=== PATIENT | female | born 1945 | race Caucasian/White ===

== ENCOUNTER 2021-08-19 10:11 | Emergency (ER) | payer OTHER ==
[~2021-08-19] VITALS: Ht 154.9 cm; Wt 63.5 kg
[2021-08-19 10:34] VITALS: BP_SYST 188
--- NOTE | 2021-08-19 10:34 | NUR ---
Patient to ER bed 4 to gown for evaluation. Side rails up. Report given to Corrina KELLER.
--- NOTE | 2021-08-19 11:00 | NUR ---
Pt presents to the [place]. Pt CC LRQ pain radiates to back and right upper thigh. AAOx4 Pain scale 10/10. PMHx Tremors consulting with Neurologist Knee replacement surgery 02/09
[2021-08-19] MEDS ORDERED: KETOROLAC TROMETHAMINE 30 MG VIAL IM ONE (11:30)
[2021-08-19 11:56] LABS: BASOPHILS % (AUTO) 0.8 % (0.0-2.0); EOSINOPHILS # (AUTO) 0.1 K/uL (0.0-0.4); EOSINOPHILS % (AUTO) 1.7 % (0.0-4.0); HEMOGLOBIN 12.2 g/dL (12.0-16.0); LYMPHOCYTES # (AUTO) 1.6 K/uL (1.0-5.5); LYMPHOCYTES % (AUTO) 23.8 % (20.5-51.5); MEAN CORPUSCULAR HEMOGLOBIN 28 pg (27-31); MEAN CORPUSCULAR HGB CONC 34 % (32-36); MEAN CORPUSCULAR VOLUME 83 fL (79.0-98.0); MONOCYTES # (AUTO) 0.6 K/uL (0.0-1.0); MONOCYTES % (AUTO) 9.3 % (1.7-9.3); NEUTROPHILS # (AUTO) 4.2 K/uL (1.8-7.7); NEUTROPHILS % (AUTO) 64.4 % (40.0-70.0); PLATELET COUNT (AUTO) 189 K/uL (130-430); RED BLOOD CELL COUNT(AUTO) 4.32 MIL/uL (4.2-6.2); RED CELL DISTRIBUTION WIDTH 14.8 % (9.0-15.0); WHITE BLOOD COUNT (AUTO) 6.6 K/uL (4.8-10.8)
[2021-08-19 11:57] LABS: ANION GAP 6 (5-15); CALCIUM 8.8 mg/dL (8.4-11.0); CHLORIDE 106 mmol/L (98-107); CREATININE 0.84 mg/dL (0.55-1.30); GLUCOSE 101 mg/dL (70-99); POTASSIUM 3.8 mmol/L (3.5-5.1); SODIUM SERUM 142 mmol/L (136-145); UREA NITROGEN, BLOOD 14 mg/dL (8-21)
[2021-08-19 12:02] LABS: PHOSPHORUS 4.2 mg/dL (2.7-4.5)
--- NOTE | 2021-08-19 12:15 | NUR ---
Md Dos Santos bs with pt for MSE.
--- NOTE | 2021-08-19 13:31 | NUR ---
Urine specimen collected and sent to lab.
[2021-08-19 13:45] LABS: BILIRUBIN,URINE NEGATIVE (NEGATIVE); CLARITY/URINE CLEAR (CLEAR); COLOR,URINE YELLOW (YELLOW); GLUCOSE,URINE NEGATIVE (NEGATIVE); KETONES,URINE NEGATIVE (NEGATIVE); LEUKOCYTE ESTERASE ,URINE TRACE (NEGATIVE); NITRITE, URINE NEGATIVE (NEGATIVE); PH,URINE 6.5 (5.0-8.0); PROTEIN URINE NEGATIVE (NEGATIVE); UROBILINOGEN,URINE 0.2 (0.2-1.0)
[2021-08-19 13:50] LABS: BLOOD, URINE TRACE (NEGATIVE)
[2021-08-19] MEDS ORDERED: MORPHINE 2 MG/ML INJ. SYRINGE IM ONE (14:15)
[2021-08-19 14:41] LABS: BACTERIA,URINE FEW /HPF (None Seen); RBC,URINE 0-3 /HPF (0-3)
[2021-08-19] MEDS ORDERED: IBUP-1969 PO (16:04)
[2021-08-19] MEDS ORDERED: SULF1TAB48 PO (16:04)
--- NOTE | 2021-08-19 16:17 | NUR ---
Patient given written and verbal discharge instructions and verbalizes understanding. ER MD discussed with patient the results and treatment provided. Patient in stable condition. ID arm band removed. IV catheter removed intact and dressing applied, no active bleeding. Rx of Ibuprofen and Bactrim given. Opportunity for questions provided and answered. Medication side effect fact sheet provided.
[2021-08-19 16:19] VITALS: BP_SYST 188
== END 2021-08-19 16:19 | disposition home or self-care (01) ==
LOC: SED 10:11
DX: S86.811A Strain of other muscle(s) and tendon(s) at lower leg level, right leg, initial encounter (principal); S39.011A Strain of muscle, fascia and tendon of abdomen, initial encounter; R10.31 Right lower quadrant pain; I10 Essential (primary) hypertension; X58.XXXA Exposure to other specified factors, initial encounter; Y93.89 Activity, other specified; Y92.89 Other specified places as the place of occurrence of the external cause; Y99.8 Other external cause status
CPT/HCPCS: 36415; 72170; 74176; 76376; 80048; 81000; 83735; 84100; 85025; 87086; 93971; 96372; 99285; J1885; J2270

== ENCOUNTER 2021-10-20 07:55 | Inpatient (IN) | payer OTHER ==
[~2021-10-20] VITALS: Ht 152.4 cm; Wt 67.1 kg
[2021-10-20] VITALS (11 sets, daily range): BP systolic 56–168
[~2021-10-20 07:55] MED LIST: IBUP-1969 PO; SULF1TAB48 PO
--- NOTE | 2021-10-20 08:05 | NUR ---
RECEIVED PT FROM OMAR CARTER. PT HAS C/O RECTAL PAIN AND BLEEDING BRIGHT RED, SINCE LAST NIGHT. PT IS AAOX4. RESP E/U. ON R/A. DENIES N/V/D/C. DISTAL PULSES NORMAL, CAP REFILL < 3 SECS. SKIN WARM, NO EDEMA, INTACT. SIDERAILS UP X2.
--- NOTE | 2021-10-20 08:10 | NUR ---
DR. ADAN AT BEDSIDE TO ASSESS PT. Addendum: 10/20/21 at [email or web address] JUAN AT BEDSIDE.
[2021-10-20] MEDS ORDERED: NACL 0.9% 1,000 ML IV ONE (08:15)
[2021-10-20 08:31] LABS: BASOPHILS % (AUTO) 0.7 % (0.0-2.0); EOSINOPHILS # (AUTO) 0.1 K/uL (0.0-0.4); HEMATOCRIT 32.4 % (36-48); HEMOGLOBIN 11.2 g/dL (12.0-16.0); LYMPHOCYTES # (AUTO) 1.4 K/uL (1.0-5.5); LYMPHOCYTES % (AUTO) 23.3 % (20.5-51.5); MEAN CORPUSCULAR HEMOGLOBIN 29 pg (27-31); MEAN CORPUSCULAR HGB CONC 35 % (32-36); MEAN CORPUSCULAR VOLUME 84 fL (79.0-98.0); MONOCYTES # (AUTO) 0.5 K/uL (0.0-1.0); MONOCYTES % (AUTO) 8.1 % (1.7-9.3); NEUTROPHILS % (AUTO) 65.9 % (40.0-70.0); PLATELET COUNT (AUTO) 190 K/uL (130-430); RED BLOOD CELL COUNT(AUTO) 3.88 MIL/uL (4.2-6.2); RED CELL DISTRIBUTION WIDTH 14.4 % (9.0-15.0); WHITE BLOOD COUNT (AUTO) 6.1 K/uL (4.8-10.8)
--- NOTE | 2021-10-20 08:32 | NUR ---
CT AB COMPLETED, LABS DRAWN.
[2021-10-20 08:41] LABS: ANION GAP 8 (5-15); CALCIUM 8.5 mg/dL (8.4-11.0); CHLORIDE 107 mmol/L (98-107); CREATININE 0.85 mg/dL (0.55-1.30); GLUCOSE 117 mg/dL (70-99); POTASSIUM 3.9 mmol/L (3.5-5.1); SODIUM SERUM 140 mmol/L (136-145); UREA NITROGEN, BLOOD 16 mg/dL (8-21)
[2021-10-20 08:47] LABS: ALANINE AMINOTRANSFERASE 20 U/L (12-78); ASPARTATE AMINOTRANSFERASE 16 U/L (10-37); TOTAL BILIRUBIN 0.4 mg/dL (0.0-1.0)
[2021-10-20 09:26] LABS: BILIRUBIN,URINE NEGATIVE (NEGATIVE); BLOOD, URINE 1+ (NEGATIVE); CLARITY/URINE CLEAR (CLEAR); COLOR,URINE YELLOW (YELLOW); GLUCOSE,URINE NEGATIVE (NEGATIVE); KETONES,URINE NEGATIVE (NEGATIVE); LEUKOCYTE ESTERASE ,URINE TRACE (NEGATIVE); NITRITE, URINE NEGATIVE (NEGATIVE); PROTEIN URINE NEGATIVE (NEGATIVE); UROBILINOGEN,URINE 0.2 (0.2-1.0)
[2021-10-20 09:40] LABS: BACTERIA,URINE FEW /HPF (None Seen); MUCUS,URINE 1+ /LPF (None Seen); RBC,URINE 0-3 /HPF (0-3); WBC,URINE 0-3 /HPF (0-3)
--- NOTE | 2021-10-20 10:20 | NUR ---
DR. ADAN AT BEDSIDE DISCUSSION POC. Addendum: 10/20/21 at [email or web address] JUAN AT BEDSIDE.
--- NOTE | 2021-10-20 10:39 | NUR ---
Admit bed requested Patient will be admitted to care of . Admitted to ICU unit. Diagnosis GI BLEED Inpatient (Yes or No) YES Observation (Yes or No) NO Orientation concerns or request close to nursing station (Yes or No) NO Covid Status PENDING On vent or bipap NO Isolation requirements NO- COVID PENDING Needs a sitter NO From Home (Yes or if No enter name of facility) YES Requires Dialysis (Yes or No) NO Med Rec Completed (Yes of No) YES
[2021-10-20] MEDS ORDERED: D5/0.45 NS 1,000 ML IV ONE (10:45)
--- NOTE | 2021-10-20 10:46 | NUR ---
COVID KRISHAN SWAB LABLED AND SENT TO LAB
[2021-10-20 10:47] LABS: INR 1.1 (0.8-1.2); PROTHROMBIN TIME 11.1 SECS (9.5-12.5)
[2021-10-20] MEDS ORDERED: VITD2000 PO (11:03)
[2021-10-20] MEDS ORDERED: OCUVITE PO (11:03)
[2021-10-20] MEDS ORDERED: LUTE1CAP5 PO (11:03)
[2021-10-20] MEDS ORDERED: ASPI-1077 PO (11:03)
[2021-10-20] MEDS ORDERED: MAGN400T10 PO (11:03)
[2021-10-20] MEDS ORDERED: OMEG10006 PO (11:03)
[2021-10-20] MEDS ORDERED: LOSA100T3 PO (11:03)
--- NOTE | 2021-10-20 11:12 | NUR ---
DR. ORJAS MET WITH AND ASSESSED PT. PT MOST LIKELY WILL NEED COLONOSCOPY, PT WILL BE MONITORED IN ICU AND HE STATED HE WILL ORDER BLOOD TO HELD.
--- NOTE | 2021-10-20 13:36 | NUR ---
Patient will be admitted to care of OMAR Flannery. Admitted to ICU unit. Will go to room 127b. Belongings list completed. Complete and up to date summary report printed. SBAR report to be given at bedside with opportunity for questions.
--- NOTE | 2021-10-20 14:05 | NUR ---
Called Dr. Doty with a consult,spoke with Rosa Elena Garcia international relations teacher today
[2021-10-20] MEDS ORDERED: GOLYTELY / COLYTE SOLUTION 4 LITERS PO ONE (18:00)
[2021-10-20 18:03] LABS: HEMATOCRIT 28.2 % (36-48); HEMOGLOBIN 9.6 g/dL (12.0-16.0)
--- NOTE | 2021-10-20 19:15 | NUR ---
Opening notes: Received bedside report from Prudencio. Patient was sitting up with in the room. Patient has 20 G in right wrist and left AC. Patient has D5NS running at 75 ml/hr. Patient is schedule for a colonoscopy tomorrow morning and is to be NPO after midnight. Patient had no complaint of pain, talking and engaging. Patient has rectal bleeding, incontinent, with no skin issues. Bed is at the lowest level, brakes are locked, oxygen and suction working, 2 side rails up, and call light within reach.
[2021-10-20] MEDS ORDERED: cefTRIAXone 1 GM in D5W 50 ML IV SCH (19:30)
[2021-10-20] MEDS ORDERED: ACETAMINOPHEN 325 MG TABLET PO PRN (19:30)
[2021-10-20] MEDS ORDERED: PANTOPRAZOLE SODIUM 40 MG/VIAL (PROTONIX) IVP ONE (19:45)
--- NOTE | 2021-10-20 19:55 | NUR ---
Patient ran into ICU to come and get the nurses. Upon getting in to patients room patient was convulsing, pale, bradycardia, and hypotensive. Code blue was called and one Epi was pushed, placed on nonrebreather. When Er Dr. Matt came patient was coming too and began to through up all of the Golytley. Right ac [address] Matt placed a femoral central line. Central line is a dialysis line because the wanted a large bore catheter if needed to push large amounts of fluid into patient. Started patient on 2 units of blood at a rapid infusion rate. Norepinephrine was started at a rate of 0.5 mcg/kg/min. Patient was transferred into ICU to bed 5.
[2021-10-20] MEDS ORDERED: NOREPINEPHRINE 4 MG/4 ML VIAL IV ONE (20:20)
[2021-10-20 20:31] LABS: HEMATOCRIT 28.2 % (36-48); HEMOGLOBIN 9.4 g/dL (12.0-16.0)
[2021-10-20] MEDS ORDERED: ONDANSETRON HCL 4 MG/2 ML VIAL IVP ONE (20:37)
[2021-10-20] MEDS ORDERED: ONDANSETRON HCL 4 MG/2 ML VIAL ONE (20:37)
[2021-10-20] MEDS ORDERED: NOREPINEPHRINE BITARTRATE 8 MG in NS 242 ML IV PRN (21:00)
--- NOTE | 2021-10-20 21:16 | NUR ---
DR. RASHMI ALBRECHT MADE AWARE OF PT S/P CODE BLUE AND 2U PRBCS PER ER MD. ORDERS RECEIVED PER CONSULT DR. GERBER, CONTINUE H/H Q6H, STAT ABG. IF HGB <8.0 TRANSFUSE 1 UNIT PRBCS. WILL CARRY OUT ORDERED.
--- NOTE | 2021-10-20 22:25 | NUR ---
Patient is unable to consume Golytely. patient is nauseas and still throwing up. Asked patient if she can try and she refused to drink.
--- NOTE | 2021-10-20 22:45 | NUR ---
Dr Mott called and gave orders for Zofran.
--- NOTE | 2021-10-20 22:55 | NUR ---
Dr Hernandez was called and informed that patient is unable to tolerate the golytely and an NG tube. Orders were given.
[2021-10-20] MEDS ORDERED: ONDANSETRON HCL 4 MG/2 ML VIAL IVP PRN (23:00)
[2021-10-20] MEDS ORDERED: MAGNESIUM CITRATE 300 ML ORAL SOLUTION PO ONE (23:00)
[2021-10-21] VITALS (25 sets, daily range): BP systolic 122–172
[2021-10-21 02:00] LABS: HEMATOCRIT 34.8 % (36-48)
--- NOTE | 2021-10-21 03:22 | NUR ---
Patient is still refusing to drink the Golytley and the magnesium citrate. Patient did drink some water and said she is starting to feel better, no complaints of pain.
--- NOTE | 2021-10-21 04:57 | NUR ---
CONSULTATION PAGED/CALLED Reason for Consultation: CRITICAL CARE Person Who was Notified: JAVON Consulting Physician: DR. GERBER Hiv Counselor Specialty: PULMONOLOGY Ordering Physician: DR. CARABALLO
[2021-10-21 06:38] LABS: BASOPHILS % (AUTO) 0.1 % (0.0-2.0); HEMATOCRIT 33.6 % (36-48); HEMOGLOBIN 11.8 g/dL (12.0-16.0); LYMPHOCYTES # (AUTO) 1.3 K/uL (1.0-5.5); LYMPHOCYTES % (AUTO) 8.8 % (20.5-51.5); MEAN CORPUSCULAR HEMOGLOBIN 30 pg (27-31); MEAN CORPUSCULAR HGB CONC 35 % (32-36); MEAN CORPUSCULAR VOLUME 85 fL (79.0-98.0); MONOCYTES # (AUTO) 0.6 K/uL (0.0-1.0); MONOCYTES % (AUTO) 4.3 % (1.7-9.3); NEUTROPHILS # (AUTO) 12.6 K/uL (1.8-7.7); NEUTROPHILS % (AUTO) 86.8 % (40.0-70.0); PLATELET COUNT (AUTO) 188 K/uL (130-430); RED BLOOD CELL COUNT(AUTO) 3.98 MIL/uL (4.2-6.2); RED CELL DISTRIBUTION WIDTH 14.6 % (9.0-15.0); WHITE BLOOD COUNT (AUTO) 14.5 K/uL (4.8-10.8)
[2021-10-21 07:02] LABS: ALANINE AMINOTRANSFERASE 24 U/L (12-78); ALBUMIN 2.7 g/dL (3.4-4.8); ANION GAP 5 (5-15); ASPARTATE AMINOTRANSFERASE 42 U/L (10-37); CALCIUM 7.8 mg/dL (8.4-11.0); CHLORIDE 106 mmol/L (98-107); CREATININE 0.82 mg/dL (0.55-1.30); GLUCOSE 157 mg/dL (70-99); POTASSIUM 3.8 mmol/L (3.5-5.1); SODIUM SERUM 139 mmol/L (136-145); TOTAL BILIRUBIN 0.3 mg/dL (0.0-1.0); UREA NITROGEN, BLOOD 11 mg/dL (8-21)
--- NOTE | 2021-10-21 08:00 | NUR ---
Received patient alert, awake and oriented with stable vital signs. She denies any pain or discomfort at this time.
--- NOTE | 2021-10-21 08:15 | NUR ---
Dr Garcia at bedside to assess.
[2021-10-21] MEDS: PANTOPRAZOLE SODIUM 40 MG/VIAL (PROTONIX) IVP SCH (08:29)
[2021-10-21] MEDS ORDERED: EPINEPHrine JECT 0.1 MG/ML SYR IVP ONE (12:56)
[2021-10-21] MEDS ORDERED: NS 1000 ML IV.SOLN IV ONE (12:56)
[2021-10-21] MEDS: POLYETHYLENE GLYCOL 3350, 17 GM/ POWD.PACK PO SCH ×2 (16:00→21:00)
--- NOTE | 2021-10-21 17:40 | NUR ---
Logo Admission Assessment - Care Management Last Saved By: Tiffany Dia Last Saved On: 10/21/2021 5:40 PM (PT) Created By: Tiffany Dia Created On: 10/21/2021 5:39 PM (PT) Patient Information Patient Name: TOMMY DRAKE [address] [place] [address] SSN: : 1945 (age 76 years) Work Phone: [phone] Gender: Female Alternative Phone: Marital Status: Race: WHITE- Race 2: Ethnicity: or or [place] Origin Ethnicity 2: Patient's Information Who was Interviewed? Answers: Patient What language does the patient speak? Answers: Other (Indicate language and if Coal Pipeline Operator services were used or not in notes) Notes: armenian Admitting Facility Answers: *[facility] [[id number]] Admitting Diagnosis GI bleed Advanced Care Planning (check all that apply) Answers: Advanced Directives? Notes: yes Additional Patient Notes covid vaccine: x 4 History and Prior Level of Function DME--PRIOR to Admission: Answers: Walker (document patient usage or frequency of use. Exp; uses walker at all times, uses walker when leaving home) Cane Cognitive--PRIOR to Admission: Answers: Alert & Orientated Home Setting--PRIOR to Admission: Answers: Private Home Notes: mobile home 5 steps lives w/ spouse Was patient receiving Home Health Services prior to Admission? Answers: No Potential Barriers to Discharge Anticipated Discharge Disposition Answers: Home Does the patient have any potential barriers to DC? (indicate barrier & plan to address) Answers: NO, anticipate DC to previous living situations, no additional services anticipated Signature Signature: Signature Date Signed: 10/21/2021 5:40 PM (PT) Signed By: Tiffany Dia Position: Inpatient Social Group Worker Pager Number: Allscripts Generated (Scan) Page 1 of Copyright 2021 [employer]. [Production([id number])]
[2021-10-21 18:23] LABS: HEMATOCRIT 33.1 % (36-48); HEMOGLOBIN 11.3 g/dL (12.0-16.0)
--- NOTE | 2021-10-21 19:05 | NUR ---
OPENING NOTES: RECEIVED BEDSIDE REPORT FROM KATHIE. PATIENT IS A&O X4, SITTING UP IN BED WITH AT BEDSIDE, ON A CLEAR LIQUID DIET, AND DRINKING MIRALAX IN GATORADE. PATIENT HAS A FEMORAL CENTRAL CATHETER WITH NS RUNNING AT 75, 20G RIGHT HAND, NPO AFTER MIDNIGHT IN PREPARATION FOR COLONOSCOPY TOMORROW AT 1500. NO COMPLAINTS OF N/V OR PAIN, NO SKIN ISSUES. BED IS AT THE LOWEST LEVEL, CALL LIGHT WITHIN REACH, BRAKES ARE LOCKED, OXYGEN AND SUCTION WORKING.
--- NOTE | 2021-10-21 21:40 | NUR ---
PATIENT REFUSED TO FINISH OR TO CONSUME ANYMORE MIRALAX. PAGED DR ROJAS TO INFORM.
--- NOTE | 2021-10-21 22:10 | NUR ---
DR JOYCE IS VENTILATION MECHANIC FOR DR ROJAS. INFORMED PATIENT IS REFUSING TO TAKE THE REST OF THE MIRALAX. NO NEW ORDERS
[2021-10-22] VITALS (19 sets, daily range): BP systolic 99–150
[2021-10-22 07:20] LABS: BASOPHILS % (AUTO) 0.4 % (0.0-2.0); EOSINOPHILS # (AUTO) 0.1 K/uL (0.0-0.4); EOSINOPHILS % (AUTO) 1.7 % (0.0-4.0); HEMOGLOBIN 10.6 g/dL (12.0-16.0); LYMPHOCYTES # (AUTO) 1.7 K/uL (1.0-5.5); LYMPHOCYTES % (AUTO) 22.6 % (20.5-51.5); MEAN CORPUSCULAR HEMOGLOBIN 30 pg (27-31); MEAN CORPUSCULAR HGB CONC 35 % (32-36); MEAN CORPUSCULAR VOLUME 85 fL (79.0-98.0); MONOCYTES # (AUTO) 0.9 K/uL (0.0-1.0); MONOCYTES % (AUTO) 12.5 % (1.7-9.3); NEUTROPHILS # (AUTO) 4.7 K/uL (1.8-7.7); NEUTROPHILS % (AUTO) 62.8 % (40.0-70.0); PLATELET COUNT (AUTO) 123 K/uL (130-430); RED BLOOD CELL COUNT(AUTO) 3.52 MIL/uL (4.2-6.2); RED CELL DISTRIBUTION WIDTH 14.9 % (9.0-15.0); WHITE BLOOD COUNT (AUTO) 7.5 K/uL (4.8-10.8)
[2021-10-22 08:20] LABS: ALANINE AMINOTRANSFERASE 23 U/L (12-78); ALBUMIN 2.5 g/dL (3.4-4.8); ANION GAP 6 (5-15); CALCIUM 8.1 mg/dL (8.4-11.0); CHLORIDE 107 mmol/L (98-107); CREATININE 0.74 mg/dL (0.55-1.30); GLUCOSE 111 mg/dL (70-99); POTASSIUM 3.8 mmol/L (3.5-5.1); SODIUM SERUM 141 mmol/L (136-145); TOTAL BILIRUBIN 0.3 mg/dL (0.0-1.0); UREA NITROGEN, BLOOD 11 mg/dL (8-21)
[2021-10-22] MEDS: PANTOPRAZOLE SODIUM 40 MG/VIAL (PROTONIX) IVP SCH ×2 (09:00→09:30)
[2021-10-22 09:17] LABS: ASPARTATE AMINOTRANSFERASE 34 U/L (10-37)
[2021-10-22] MEDS ORDERED: SIMETHICONE 40 MG/0.6 ML ML ONE (12:28)
[2021-10-22] MEDS ORDERED: MEPERIDINE 100 MG INJ. 100 MG/ML VIAL ONE (12:28)
[2021-10-22] MEDS ORDERED: MIDAZOLAM HCL 5 MG/5 ML VIAL ONE (12:29)
[2021-10-22 18:24] LABS: HEMATOCRIT 29.7 % (36-48); HEMOGLOBIN 10.2 g/dL (12.0-16.0)
--- NOTE | 2021-10-22 19:55 | NUR ---
PM ASSESSMENT; -Pt arrived from ICU to Room 103-A via bed. Pt is a/ox4, denies any chest pain,pain,sob,or any acute distress. Spouse is at bedside. VS stable 96.8, 20, 78,p5vgt=47% r/a, 120/62. IV sites of rt wrist & RAC patent after flushed w/ NS,no s/s any infiltration noted. Rt femoral site drsg cdi from Central line removed earlier prior transferring to this unit as telemetry. Discussed and educated poc and how to use call light for assistance or if experiencing any chest pain,pain,sob,or any acute distress, pt verbalized understanding and shows good return demonstration. call light w/in reach, side rails x2. Cont to monitor pt. Addendum: 10/22/21 at 2302 by [employer], OMAR NELSON LATE ENTRY-ADDITIONAL NOTES; I called the catheterization laboratory technician from pt's room and confirmed the room number, pt's name, , and D# matched.
[2021-10-22] MEDS: NACL 0.9% 1,000 ML IV SCH (20:45)
--- NOTE | 2021-10-22 22:15 | NUR ---
ROUNDS; -Pt is lying in bed comfortably. No s/s any acute distress noted. IVF infusing well, no s/s any infiltration noted. Bed alarmed, side rails x2, call light w/in reach. cont to monitor pt.
--- NOTE | 2021-10-23 00:30 | NUR ---
ROUNDS; -Pt is asleep. No s/s any acute distress noted. IVF infusing well, no s/s any infiltration noted. Bed alarmed, side rails x2, call light w/in reach. cont to monitor pt.
[2021-10-23 01:04] VITALS: BP_SYST 120
--- NOTE | 2021-10-23 06:26 | NUR ---
CLOSING NOTES; -Pt is resting in bed comfortably. Pt denies any chest pain,sob,pain,or any acute distress. IVF infusing well. Pt's condition stable entire shift. Bed alarmed, call light w/in reach, side rails x2. Will endorse to next nurse to cont care.
[2021-10-23] MEDS: NACL 0.9% 1,000 ML IV SCH (09:25)
[2021-10-23 10:31] LABS: ANION GAP 4 (5-15); CALCIUM 7.9 mg/dL (8.4-11.0); CHLORIDE 105 mmol/L (98-107); CREATININE 0.68 mg/dL (0.55-1.30); GLUCOSE 117 mg/dL (70-99); POTASSIUM 3.1 mmol/L (3.5-5.1); SODIUM SERUM 140 mmol/L (136-145); UREA NITROGEN, BLOOD 10 mg/dL (8-21)
[2021-10-23 11:25] VITALS: BP_SYST 151
[2021-10-23 12:12] LABS: BASOPHILS % (AUTO) 0.5 % (0.0-2.0); EOSINOPHILS # (AUTO) 0.2 K/uL (0.0-0.4); EOSINOPHILS % (AUTO) 2.4 % (0.0-4.0); HEMATOCRIT 29.5 % (36-48); HEMOGLOBIN 10.1 g/dL (12.0-16.0); LYMPHOCYTES # (AUTO) 1.3 K/uL (1.0-5.5); LYMPHOCYTES % (AUTO) 18.7 % (20.5-51.5); MEAN CORPUSCULAR HEMOGLOBIN 29 pg (27-31); MEAN CORPUSCULAR HGB CONC 34 % (32-36); MEAN CORPUSCULAR VOLUME 85 fL (79.0-98.0); MONOCYTES # (AUTO) 0.6 K/uL (0.0-1.0); MONOCYTES % (AUTO) 8.5 % (1.7-9.3); NEUTROPHILS # (AUTO) 5.1 K/uL (1.8-7.7); NEUTROPHILS % (AUTO) 69.9 % (40.0-70.0); PLATELET COUNT (AUTO) 124 K/uL (130-430); RED BLOOD CELL COUNT(AUTO) 3.46 MIL/uL (4.2-6.2); RED CELL DISTRIBUTION WIDTH 14.6 % (9.0-15.0); WHITE BLOOD COUNT (AUTO) 7.2 K/uL (4.8-10.8)
[2021-10-23] MEDS ORDERED: POTASSIUM CHLORIDE 20 MEQ/PKT PACKET PO ONE (14:00)
[2021-10-23 15:30] VITALS: BP_SYST 150
[2021-10-23 19:40] VITALS: BP_SYST 155
--- NOTE | 2021-10-23 19:40 | NUR ---
PM ASSESSMENT; - Pt is a/ox4, denies any chest pain,pain,sob,or any acute distress. Spouse is at bedside. IV sites of rt wrist patent after flushed w/ NS,no s/s any infiltration noted. IVF NS @ 75ml/hr. Rt femoral site drsg. Discussed and educated poc with pt and spouse at bedside, pt returns good demonstration how to use call light for assistance or if experiencing any chest pain,pain,sob,or any acute distress. call light w/in reach, side rails x2. Cont to monitor pt.
--- NOTE | 2021-10-23 19:40 | NUR ---
PM ASSESSMENT; -Pt is a/ox4,laying in bed comfortably. Pt denies any chest pain,sob,or any acute distress. IV site of rt f/a patent, no s/s any infiltration noted, infusing w/ 1/2 NS @ 75ml/hr. Cooper heels and feet dry wounds with blue vasquez applied. Keep pt cleaned and dry. Discussed poc, all safety measures, pt verbalized understanding. Pt is able to show good return demonstration how to use call light when needs assistance or if experiencing any chest pain,pain,sob,or any acute distress. Fall precaution in place. Bed alarmed, side rails x3, call light w/in reach. Cont to monitor pt. Addendum: 10/23/21 at 2112 by [facility] RN CHARTING ON WRONG PATIENT
--- NOTE | 2021-10-23 22:15 | NUR ---
ROUNDS; -Pt awakes, lying in bed comfortably. Pt denies any chest pain, pain,sob,or any acute distress. IVF infusing well, no s/s any infiltration noted. Bed alarmed, side rails x3, call light w/in reach. Cont to monitor pt.
--- NOTE | 2021-10-24 00:05 | NUR ---
ROUNDS; -Pt is asleep in bed comfortably. No s/s any acute distress noted. Bed alarmed, side rails x2, call light w/in reach. Cont to monitor pt.
[2021-10-24 00:10] VITALS: BP_SYST 136
--- NOTE | 2021-10-24 02:21 | NUR ---
ROUNDS; -Pt is asleep in bed comfortably. No s/s any acute distress noted. Fall precaution in place. Bed alarmed, side rails x3, call light w/in reach. Cont to monitor pt.
--- NOTE | 2021-10-24 08:00 | NUR ---
Received patient in bed, aaoX4, vital signs are within normal limits, patient denies pain, iv normal saline infusing 75 ml/hr to right wrist, patient complained of blood in her stool, doctor Skyler made aware, patient in stable condition, denies any other problem at this time, meds given as ordered, patient made comfortable. call light within reach, bed in low position, patient encouraged to call for any help, RN will be available as needed
[2021-10-24 08:17] LABS: ANION GAP 10 (5-15); CALCIUM 8.7 mg/dL (8.4-11.0); CHLORIDE 104 mmol/L (98-107); CREATININE 0.68 mg/dL (0.55-1.30); GLUCOSE 136 mg/dL (70-99); SODIUM SERUM 141 mmol/L (136-145); UREA NITROGEN, BLOOD 8 mg/dL (8-21)
[2021-10-24 08:41] VITALS: BP_SYST 135
[2021-10-24] MEDS: NACL 0.9% 1,000 ML IV SCH (09:45)
[2021-10-24] MEDS: PANTOPRAZOLE SODIUM 40 MG/VIAL (PROTONIX) IVP SCH (10:13)
[2021-10-24] MEDS ORDERED: KCL 20 mEq in 100 mL (PREMIX) 100 ML IV ONE (10:30)
[2021-10-24] MEDS ORDERED: POTASSIUM CHLORIDE 20 MEQ/PKT PACKET PO ONE (10:30)
--- NOTE | 2021-10-24 11:14 | NUR ---
Patient's famiy at the bedside, son and daughter, daughter has questions about patient's condition, wants to know plan of care for GI. Inform per Dr. Holland pt can be discharged tomorrow if cleared by GI. Pt also made aware, Rn will be available to assist as needed.
[2021-10-24 11:40] VITALS: BP_SYST 156
[2021-10-24 12:26] LABS: BASOPHILS % (AUTO) 0.5 % (0.0-2.0); EOSINOPHILS # (AUTO) 0.2 K/uL (0.0-0.4); EOSINOPHILS % (AUTO) 2.3 % (0.0-4.0); HEMATOCRIT 30.9 % (36-48); HEMOGLOBIN 10.5 g/dL (12.0-16.0); LYMPHOCYTES # (AUTO) 1.2 K/uL (1.0-5.5); LYMPHOCYTES % (AUTO) 15.5 % (20.5-51.5); MEAN CORPUSCULAR HEMOGLOBIN 29 pg (27-31); MEAN CORPUSCULAR HGB CONC 34 % (32-36); MEAN CORPUSCULAR VOLUME 86 fL (79.0-98.0); MONOCYTES # (AUTO) 0.7 K/uL (0.0-1.0); MONOCYTES % (AUTO) 9.3 % (1.7-9.3); NEUTROPHILS # (AUTO) 5.7 K/uL (1.8-7.7); NEUTROPHILS % (AUTO) 72.4 % (40.0-70.0); PLATELET COUNT (AUTO) 152 K/uL (130-430); RED CELL DISTRIBUTION WIDTH 14.7 % (9.0-15.0); WHITE BLOOD COUNT (AUTO) 7.8 K/uL (4.8-10.8)
--- NOTE | 2021-10-24 15:37 | NUR ---
Patient is at the bedside resting , states she feels a lot better, no coughing noted, son at the bedside having family time, in no acute distress. RN will continue to monitor patient.
--- NOTE | 2021-10-24 16:28 | NUR ---
Dietitian Recommendations * Continue Soft (low-fiber/bland) diet LP, MS, RD Please refer to Nutrition Assessment for details. Addendum: 10/24/21 at [address] Amended: Links added.
[2021-10-24 16:56] VITALS: BP_SYST 155
--- NOTE | 2021-10-24 17:00 | NUR ---
Make rounds, patient is doing well, family at the bedside, will continue to monitor, patient awaiting potassium level for possible discharge.
[2021-10-24 17:57] VITALS: BP_SYST 153
--- NOTE | 2021-10-24 18:09 | NUR ---
D/C Patient Patient given medication reconciliation form and D/C instructions. Exit Care provided. Patient verbalized understanding. MD discussed with patient the results and treatment provided. Ambulatory with steady gait for discharge to home. Patient in stable condition, ID band removed. IV catheter removed, intact and dressing applied, no active bleeding. Patient educated on pain management. All belongings sent with patient. Patient left via wheel chair to a waiting car.
== END 2021-10-24 18:15 | disposition home or self-care (01) | DRG 377 ==
LOC: SED 07:55 → SIC 11:54 → STU 10-22 19:55
PROVIDERS: ADMIT Specialist; ATTEND Specialist
PROC: 06HY33Z Insertion of Infusion Device into Lower Vein, Percutaneous Approach (ICD-10-PCS; principal; 2021-10-20)
PROC: B54BZZA Ultrasonography of Right Lower Extremity Veins, Guidance (ICD-10-PCS; 2021-10-20)
PROC: 30233N1 Transfusion of Nonautologous Red Blood Cells into Peripheral Vein, Percutaneous Approach (ICD-10-PCS; 2021-10-20)
PROC: 0DBE8ZX Excision of Large Intestine, Via Natural or Artificial Opening Endoscopic, Diagnostic (ICD-10-PCS; 2021-10-22)
DX: K57.31 Diverticulosis of large intestine without perforation or abscess with bleeding (principal); E43 Unspecified severe protein-calorie malnutrition; R57.8 Other shock; D62 Acute posthemorrhagic anemia; I10 Essential (primary) hypertension; E11.9 Type 2 diabetes mellitus without complications; R00.1 Bradycardia, unspecified; M19.90 Unspecified osteoarthritis, unspecified site; K63.5 Polyp of colon; K64.8 Other hemorrhoids; Z20.822 Contact with and (suspected) exposure to COVID-19; Z88.8 Allergy status to other drugs, medicaments and biological substances; Z79.899 Other long term (current) drug therapy; Z79.1 Long term (current) use of non-steroidal anti-inflammatories (NSAID)
CPT/HCPCS: 36415; 36430; 36600; 45380; 74018; 76376; 80048; 80053; 81000; 82803-TC; 82962; 83735; 84132; 85018; 85025; 85610-TC; 86886; 86900; 86901; 86920; 87086; 88305; 94760; 99291; C9113; G0378; J0171; J2175; J2250; J2405; J3480; J7030; P9021